=== PATIENT | male | born 1935 | race Caucasian/White ===

== ENCOUNTER → 2020-01-30 | Outpatient (CLI) | payer MEDICARE, BC ==
[~2020-01-30] MED LIST: ASPI325T6 PO; ASPIRIN 32325 MG/TAB PO; COZAAR100 MG PO; GLUCOPHAGE500 MG/TAB PO; HCTZ12.5TAB PO; HYZAAR 25 MG-101 TAB PO; HYZAAR 50-12.1 UDTAB PO; NORCO 325 MG-51 TAB PO; PARCOPA 25/101 UDTAB NG; SENOKOT S 50 MG1 TAB PO; SINEMET CR1 UDTAB.S1 PO; TYLENOL 325MG325 MG PO
[2020-01-30 16:29] LABS: COLLECTION METHOD RANDOM VOIDED
[2020-01-30 16:48] LABS: MUCOUS Present /lpf; PH 5 (5-8); SQUAMOUS EPITHELIAL None Seen /hpf; URINE APPEARANCE Clear; URINE BACTERIA None Seen /hpf; URINE BILIRUBIN Negative (NEGATIVE); URINE BLOOD Negative (NEGATIVE); URINE CALCIUM OXALATE CRYSTAL Present /hpf; URINE COLOR Amber; URINE GLUCOSE Negative (NEGATIVE); URINE KETONE Trace (NEGATIVE); URINE LEUKOCYTE ESTERASE Negative (NEGATIVE); URINE NITRATE Negative (NEGATIVE); URINE PROTEIN(semi-quant) Negative (NEGATIVE); URINE UROBILINOGEN Negative (NEGATIVE); URINE WBC 0-2 /hpf
== END ==
LOC: ZLAB.STJ 16:19
PROVIDERS: Internal Medicine
DX: N39.0 Urinary tract infection, site not specified (principal)

== ENCOUNTER 2020-03-07 12:54 | Emergency (ER) | payer MEDICARE, BC ==
[~2020-03-07] VITALS: Ht 182.9 cm; Wt 86.4 kg
[2020-03-07 13:00] VITALS: TEMP 97.7
[2020-03-07 13:15] LABS: BASO % 0.1 % (0.0-2.0); EOS # 0.2 (0.0-0.7); EOS % 2.3 % (0-4.0); GRAN # 5.6 (1.4-6.5); GRAN % 79.6 % (42.2-75.2); HEMOGLOBIN 10.7 g/dl (13.5-18.0); LYMPH # 0.8 (1.2-3.4); LYMPH % 10.9 % (20.0-51.0); MEAN CELL VOLUME 91 fl (80.0-100.0); MEAN CORPUSCULAR HEMOGLOBIN 31 pg (27.0-31.0); MEAN CORPUSCULAR HGB CONC 34 g/dl (33.0-37.0); MEAN PLATELET VOLUME 9.1 fl (7.4-10.4); MONO # 0.5 (0.1-0.6); MONO % 6.5 % (1.7-9.3); PLATELET COUNT 269 K/mm3 (130-400); RED BLOOD COUNT 3.51 M/mm3 (4.20-5.60); REDCELL DISTRIBUTION WIDTH-CV 12.9 % (11.5-14.5)
[2020-03-07 13:21] LABS: HEMATOCRIT 31.9 % (42.0-52.0)
[2020-03-07 13:28] LABS: CALCIUM 8.2 mg/dL (8.4-10.2); CREATININE, serum 0.48 (0.66-1.25); TOTAL PROTEIN 6.5 gm/dL (6.4-8.2)
[2020-03-07 13:34] LABS: POTASSIUM 2.8 mmol/L (3.4-5.0)
[2020-03-07 13:41] LABS: TROPONIN-I 0.071 ng/mL (0.000-0.035)
[2020-03-07 14:07] LABS: COLLECTION METHOD CLEAN CATCH
[2020-03-07 14:14] LABS: MUCOUS Present /lpf; PH 6 (5-8); SQUAMOUS EPITHELIAL 0-2 /hpf; URINE APPEARANCE Hazy; URINE BACTERIA None Seen /hpf; URINE BILIRUBIN Negative (NEGATIVE); URINE BLOOD Negative (NEGATIVE); URINE COLOR Amber; URINE GLUCOSE Negative (NEGATIVE); URINE KETONE 1+ (NEGATIVE); URINE LEUKOCYTE ESTERASE Negative (NEGATIVE); URINE NITRATE Negative (NEGATIVE); URINE PROTEIN(semi-quant) 2+ (NEGATIVE); URINE UROBILINOGEN >=4.0 mg/dL (NEGATIVE)
[2020-03-07 14:35] VITALS: BP 195/116
--- NOTE | 2020-03-07 16:53 | NUR ---
CECELIA was notified by [facility] that the patient has COVID-19 and the patient's is wanting to pursue hospice care. CECELIA contacted the patient's , Zeenat. The patient resides at [facility] in long-term care. Zeenat confirms that she wants the patient to return back to [facility] on hospice. CECELIA informed her of the different hospice agencies: [facility], [facility], [facility], and [facility]. Zeenat chose [facility]. CECELIA contacted and updated Owen at [facility]. CECELIA contacted and faxed a referral to Kayleigh at [facility]. Kayleigh reports that they would not be able to admit the patient and start services until Tuesday. CECELIA updated the patient's . The patient's then chose [facility]. CECELIA contacted [facility]. It was there on-call service. The campus receptionist took CECELIA's phone number. CECELIA faxed the referral to [facility]. CECELIA updated the patient's RN. The patient is to discharge back to [facility] today, via EMS. CECELIA contacted and updated the patient's and Owen at [facility]. The patient's is in agreement to the plan. Owen, at [facility], reports that they will follow up with [facility]
[2020-03-07 17:21] VITALS: PULSE 62
[2020-03-07] MEDS ORDERED: ATIVAN 0.50.5 MG/TAB PO (17:37)
[2020-03-07] MEDS ORDERED: ROXANOL 20MG20 MG/ML PO (17:37)
== END 2020-03-07 17:30 ==
LOC: COL.ER 12:54
PROVIDERS: Emergency Medicine
DX: U07.1 COVID-19 (principal); E11.9 Type 2 diabetes mellitus without complications; I10 Essential (primary) hypertension; G20 Parkinson's disease; Z88.8 Allergy status to other drugs, medicaments and biological substances; Z88.6 Allergy status to analgesic agent; Z79.82 Long term (current) use of aspirin; Z79.84 Long term (current) use of oral hypoglycemic drugs
CPT/HCPCS: 99223-AI; J1100; J3475; J3480; J7030